=== PATIENT | male | born 1940 | race Caucasian/White ===

== ENCOUNTER 2019-04-05 17:43 | Emergency (ER) | payer OTHER ==
[~2019-04-05] VITALS: Wt 68.0 kg
[~2019-04-05 17:43] MED LIST: FLEXERIL10 MG PO; MOTRIN800 MG PO; NKHM; VICODIN ES 7501 TAB PO; ZOFRAN ODT4 MG SL
[2019-04-05] MEDS ORDERED: AUGMENTIN 875875 MG PO (18:25)
== END 2019-04-05 18:37 | disposition home or self-care (01) ==
LOC: ED 17:43
DX: S81.852A Open bite, left lower leg, initial encounter (principal); W54.0XXA Bitten by dog, initial encounter; Y93.89 Activity, other specified; Y92.89 Other specified places as the place of occurrence of the external cause; Y99.8 Other external cause status

== ENCOUNTER 2019-12-02 13:35 | Emergency (ER) | payer OTHER ==
[~2019-12-02] VITALS: Ht 175.2 cm; Wt 68.0 kg
[~2019-12-02 13:35] MED LIST changes: +AUGMENTIN 875875 MG PO
== END 2019-12-02 14:14 | disposition home or self-care (01) ==
LOC: ED 13:35
DX: U07.1 COVID-19 (principal); J98.8 Other specified respiratory disorders; Z79.899 Other long term (current) drug therapy

== ENCOUNTER → 2020-01-02 | Outpatient (CLI) | payer OTHER | END | disposition home or self-care (01) | LOC: CARD 07:08 | PROVIDERS: ATTEND Internal Medicine Cardiovascular Disease | DX: I08.0 Rheumatic disorders of both mitral and aortic valves (principal) ==

== ENCOUNTER → 2020-01-16 | Outpatient (CLI) | payer OTHER | END | disposition home or self-care (01) | LOC: COVID19 03:35 | PROVIDERS: ATTEND Internal Medicine Cardiovascular Disease | DX: Z20.828 Contact with and (suspected) exposure to other viral communicable diseases (principal); I34.0 Nonrheumatic mitral (valve) insufficiency ==

== ENCOUNTER → 2020-01-21 | Day surgery (SDC) | payer OTHER ==
[~2020-01-21] VITALS: Ht 180.3 cm; Wt 72.6 kg
[2020-01-21 11:53] VITALS: BP 141/72
[2020-01-21 13:02] VITALS: BP 88/33
[2020-01-21 13:15] VITALS: BP 97/39
[2020-01-21 13:32] VITALS: BP 140/76
== END | disposition home or self-care (01) ==
LOC: SDC 01-17 14:00
PROVIDERS: ATTEND Internal Medicine Cardiovascular Disease
DX: R07.9 Chest pain, unspecified (principal); I34.0 Nonrheumatic mitral (valve) insufficiency; J44.9 Chronic obstructive pulmonary disease, unspecified; K21.9 Gastro-esophageal reflux disease without esophagitis; Z88.0 Allergy status to penicillin; Z88.8 Allergy status to other drugs, medicaments and biological substances; Z79.899 Other long term (current) drug therapy

== ENCOUNTER 2020-12-01 17:58 | Inpatient (IN) | payer OTHER ==
[~2020-12-01] VITALS: Ht 175.2 cm; Wt 90.3 kg
[2020-12-01 18:04] VITALS: BP 171/68
[2020-12-01 19:03] LABS: BASO % 0.4 % (0.0-1.0); EOS # 0.2 10*3/uL (0.0-0.4); EOS % 1.3 % (1.0-4.0); HEMATOCRIT 42.3 % (42.0-52.0); LYMPH # 2.1 10*3/uL (1.3-4.4); LYMPH % 18.7 % (27.0-41.0); MEAN CELL VOLUME 87.6 fl (80.0-94.0); MEAN CORPUSCULAR HGB 29.2 pg (27.0-31.0); MEAN CORPUSCULAR HGB CONC 33.3 g/dl (33.0-37.0); MEAN PLATELET VOLUME 9.7 fl (9.6-12.3); MONO # 0.9 10*3/uL (0.1-1.0); MONO % 8.2 % (3.0-9.0); PLATELET COUNT AUTOMATED 218 10*3/uL (130-400); RED BLOOD COUNT 4.83 10*6/uL (4.50-5.90); RED CELL DISTRI WIDTH 12.5 % (0-14.5); WHITE BLOOD COUNT 11.3 10*3/uL (4.8-10.8)
[2020-12-01 19:23] LABS: ALKALINE PHOSPHATASE 89 U/L (45-117); BUN 19 mg/dl (7-24); CHLORIDE 105 mmol/L (98-107); CREATININE 1.02 mg/dL (0.70-1.30); LIPASE 133 U/L (73-393); POTASSIUM 4.1 mmol/L (3.5-5.1); SGOT/AST 21 IU/L (3-35); SGPT/ALT 33 U/L (12-78); SODIUM 141 mmol/L (136-145); TOTAL PROTEIN 7.5 gm/dL (6.4-8.2)
[2020-12-01 19:46] LABS: TROPONIN I < 0.015 ng/ml (<0.045)
[2020-12-02] VITALS (10 sets, daily range): BP systolic 113–159; BP diastolic 54–71
[2020-12-02] MEDS ORDERED: ROSUVASTATIN CAL5 MG PO (02:13)
[2020-12-02] MEDS ORDERED: TAMSULOSIN HCL0.4 MG PO (02:13)
[2020-12-02 06:16] LABS: HEMATOCRIT 39.8 % (42.0-52.0); MEAN CELL VOLUME 89.6 fl (80.0-94.0); MEAN CORPUSCULAR HGB 29.5 pg (27.0-31.0); MEAN CORPUSCULAR HGB CONC 32.9 g/dl (33.0-37.0); MEAN PLATELET VOLUME 10.6 fl (9.6-12.3); PLATELET COUNT AUTOMATED 202 10*3/uL (130-400); RED BLOOD COUNT 4.44 10*6/uL (4.50-5.90); RED CELL DISTRI WIDTH 12.6 % (0-14.5); WHITE BLOOD COUNT 14.5 10*3/uL (4.8-10.8)
[2020-12-02 06:29] LABS: ALBUMIN 3.4 gm/dl (3.1-4.5); ALKALINE PHOSPHATASE 75 U/L (45-117); BUN 20 mg/dl (7-24); CHLORIDE 105 mmol/L (98-107); CREATININE 1.11 mg/dL (0.70-1.30); FREE T4 0.87 ng/dl (0.76-1.46); POTASSIUM 4.4 mmol/L (3.5-5.1); SGOT/AST 19 IU/L (3-35); SGPT/ALT 29 U/L (12-78); SODIUM 139 mmol/L (136-145); TOTAL PROTEIN 6.8 gm/dL (6.4-8.2)
[2020-12-02 06:33] LABS: THYROID STIM HORMONE (HS) 0.457 uIU/ml (0.358-4.75)
[2020-12-02 06:47] LABS: TOTAL CELLS COUNTED 100 #CELLS
[2020-12-02 06:48] LABS: PLATELET SUFFICIENCY NORMAL (NORMAL)
[2020-12-03] VITALS: BP 135/63
[2020-12-03 06:57] LABS: BASO % 0.1 % (0.0-1.0); EOS % 0.3 % (1.0-4.0); HEMATOCRIT 35.5 % (42.0-52.0); LYMPH # 1.7 10*3/uL (1.3-4.4); LYMPH % 12.9 % (27.0-41.0); MEAN CELL VOLUME 90.1 fl (80.0-94.0); MEAN CORPUSCULAR HGB 29.4 pg (27.0-31.0); MEAN CORPUSCULAR HGB CONC 32.7 g/dl (33.0-37.0); MEAN PLATELET VOLUME 10.3 fl (9.6-12.3); MONO # 1.1 10*3/uL (0.1-1.0); MONO % 7.9 % (3.0-9.0); NEUT # 10.5 10*3/uL (2.3-7.9); NEUT % 78.3 % (47.0-73.0); PLATELET COUNT AUTOMATED 188 10*3/uL (130-400); RED BLOOD COUNT 3.94 10*6/uL (4.50-5.90); RED CELL DISTRI WIDTH 12.6 % (0-14.5); WHITE BLOOD COUNT 13.4 10*3/uL (4.8-10.8)
[2020-12-03 07:03] LABS: BUN 16 mg/dl (7-24); CHLORIDE 111 mmol/L (98-107); CREATININE 0.93 mg/dL (0.70-1.30); SODIUM 142 mmol/L (136-145)
[2020-12-03 08:00] VITALS: BP 134/59
[2020-12-03 12:00] VITALS: BP 112/60
[2020-12-03 16:00] VITALS: BP 127/57
[2020-12-03] MEDS ORDERED: BISACODYL LAXATI5 MG PO (17:29)
[2020-12-03] MEDS ORDERED: HYDROCODONE-AC1 EAC1 PO (17:29)
[2020-12-03] MEDS ORDERED: CIPROFLOXACIN500 M4 PO (17:29)
[2020-12-03] MEDS ORDERED: METRONIDAZOLE500 M1 PO (17:29)
== END 2020-12-03 18:06 | disposition home or self-care (01) | DRG 854 ==
LOC: ED 17:58 → EDHOLD 21:47 → 5E 21:47
PROVIDERS: Internal Medicine; Nurse Practitioner Family; Surgery; ADMIT Family Medicine; ATTEND Family Medicine
PROC: 0WJG4ZZ Inspection of Peritoneal Cavity, Percutaneous Endoscopic Approach (ICD-10-PCS; principal; 2020-12-02)
DX: A41.9 Sepsis, unspecified organism (principal); K56.609 Unspecified intestinal obstruction, unspecified as to partial versus complete obstruction; K52.9 Noninfective gastroenteritis and colitis, unspecified; K44.9 Diaphragmatic hernia without obstruction or gangrene; N28.1 Cyst of kidney, acquired; K76.0 Fatty (change of) liver, not elsewhere classified; I77.819 Aortic ectasia, unspecified site; K63.89 Other specified diseases of intestine; M47.816 Spondylosis without myelopathy or radiculopathy, lumbar region; E83.41 Hypermagnesemia; R73.9 Hyperglycemia, unspecified; D72.829 Elevated white blood cell count, unspecified; R03.0 Elevated blood-pressure reading, without diagnosis of hypertension; K57.10 Diverticulosis of small intestine without perforation or abscess without bleeding; D64.9 Anemia, unspecified; N40.0 Benign prostatic hyperplasia without lower urinary tract symptoms; E78.5 Hyperlipidemia, unspecified; Z88.0 Allergy status to penicillin; Z87.891 Personal history of nicotine dependence; Z82.49 Family history of ischemic heart disease and other diseases of the circulatory system; Z79.899 Other long term (current) drug therapy

== ENCOUNTER 2023-02-11 13:22 | Emergency (ER) | payer MEDICARE ==
[~2023-02-11] VITALS: Ht 175.2 cm; Wt 68.0 kg
[~2023-02-11 13:22] MED LIST changes: +BISACODYL LAXATI5 MG PO; +CIPROFLOXACIN500 M4 PO; +HYDROCODONE-AC1 EAC1 PO; +METRONIDAZOLE500 M1 PO; +ROSUVASTATIN CAL5 MG PO; +TAMSULOSIN HCL0.4 MG PO
[2023-02-11] MEDS ORDERED: HYDROCODONE-AC1 EAC1 PO (16:00)
[2023-02-11] MEDS ORDERED: VIBRAMYCIN100 MG PO (16:00)
== END 2023-02-11 16:05 | disposition home or self-care (01) ==
LOC: ED 13:22
DX: S02.40DA Maxillary fracture, left side, initial encounter for closed fracture (principal); S02.2XXA Fracture of nasal bones, initial encounter for closed fracture; E78.5 Hyperlipidemia, unspecified; Z88.0 Allergy status to penicillin; Z79.2 Long term (current) use of antibiotics; Z79.899 Other long term (current) drug therapy; Z87.891 Personal history of nicotine dependence; W11.XXXA Fall on and from ladder, initial encounter; Y93.89 Activity, other specified; Y92.89 Other specified places as the place of occurrence of the external cause; Y99.8 Other external cause status